=== PATIENT | female | born 1975 | race Caucasian/White ===

== ENCOUNTER 2020-11-17 23:46 | Emergency (ER) | payer BC ==
[2020-11-18] MEDS ORDERED: Lidocaine 1% w/Epinephrine 1:100K 30 ML VIAL ONE (00:04)
[2020-11-18] MEDS ORDERED: Lidocaine 1% (PF) 30 ML VIAL ONE (00:05)
[2020-11-18] MEDS ORDERED: Bacitracin 1 PK ONE (00:54)
[2020-11-18] MEDS ORDERED: Naproxen 500 MG TAB ONE (00:54)
[2020-11-18] MEDS ORDERED: Cephalexin 250 MG CAP ONE (00:55)
--- NOTE | 2020-11-18 08:01 | RAD ---
EXAM: 3 views of the right hand COMPARISON: None HISTORY: Hand pain after fall FINDINGS: 3 views of the hand shows tuft fractures of the middle and ring fingers. The fracture of th e middle finger extends to the DIP joint. No dislocation is seen. No degenerative changes are seen. Mild distal middle and ring finger soft tissue swelling is present. IMPRESSION: Distal phalanx fractures of the middle and ring fingers.
== END 2020-11-18 01:14 | disposition home or self-care (01) ==
LOC: NAV ERS 23:46
DX: S67.192A Crushing injury of right middle finger, initial encounter (principal); S67.194A Crushing injury of right ring finger, initial encounter; S62.632A Displaced fracture of distal phalanx of right middle finger, initial encounter for closed fracture; S62.634A Displaced fracture of distal phalanx of right ring finger, initial encounter for closed fracture; I25.2 Old myocardial infarction; E78.5 Hyperlipidemia, unspecified; I10 Essential (primary) hypertension; F17.290 Nicotine dependence, other tobacco product, uncomplicated; Z79.82 Long term (current) use of aspirin; Z79.899 Other long term (current) drug therapy; W23.0XXA Caught, crushed, jammed, or pinched between moving objects, initial encounter
CPT/HCPCS: 12002; J2001